=== PATIENT | male | born 1940 | race Asian ===

== ENCOUNTER → 2017-01-22 | Outpatient (CLI) | payer BC | LOC: BMCIMAGING 10:42 | PROVIDERS: ATTEND Physician Assistant | DX: Z13.820 Encounter for screening for osteoporosis (principal); M81.0 Age-related osteoporosis without current pathological fracture ==

== ENCOUNTER → 2018-07-17 | Outpatient (CLI) | payer OTHER | LOC: FIMAGING 10:33 | PROVIDERS: ATTEND Internal Medicine | DX: M19.032 Primary osteoarthritis, left wrist (principal) ==